=== PATIENT | female | born 1995 | race Caucasian/White ===

== ENCOUNTER → 2022-07-04 | Outpatient (CLI) | payer BC ==
--- NOTE | 2022-07-04 17:24 | Diagnostic Imaging Report ---
INDICATION: survey, increased alpha-fetoprotein. TECHNIQUE: Multiple real-time grayscale images were obtained over the gravid uterus. COMPARISON: None FINDINGS: The cervix measures 4.5 cm in length. There is no funneling seen. Presentation is breech. Placenta is posterior without evidence of previa. The amniotic fluid appears normal subjectively, with a vertical pocket seen measuring 4.1 cm. The cerebellum and cisterna magna are seen. The bladder is seen. There are two umbilical arteries consistent with a three-vessel cord. Four-chamber heart is seen. The stomach is seen. The left ventricular outflow tract is seen. The right ventricular outflow tract is not well seen. The upper spine is seen. The lower spine is not well seen. The intracranial ventricles are seen. The cord insertion is seen. The diaphragm is seen. The kidneys are seen. Biometrical measurements are as follows: Biparietal 4.65 cm, age 20 weeks 1 days. Head circumference 16.98 cm, age 19 weeks 5 days. Abdominal circumference 15.62 cm, age 20 weeks 6 days. Femur length 3.13 cm, age 19 weeks 6 days. Sonographic estimate age: 20 weeks 1 days. Sonographic estimated date of delivery: 11/20/2022. Estimated Weight: 339 gm (+/- 50 gm). LMP percentile: 58%. heart rate: 132 beats per minute. number: 1 of 1. IMPRESSION: 1. Single live intrauterine gestation measuring at 20 weeks and 1 day which is within range of the clinical dates. 2. No anatomic abnormalities are seen. The lower spine and right ventricular outflow tract are not well seen due to lie. 3. Breech presentation. Dictated by: Dictated on workstation # [id number]
== END ==
LOC: RAD 14:35
PROVIDERS: ATTEND Obstetrics & Gynecology
DX: O32.1XX0 Maternal care for breech presentation, not applicable or unspecified (principal); Z3A.20 20 weeks gestation of pregnancy
CPT/HCPCS: 76805